=== PATIENT | female | born 1990 | race Caucasian/White ===

== ENCOUNTER 2016-09-29 23:21 | Emergency (ER) | payer OTHER ==
[~2016-09-29] VITALS: Ht 165.1 cm; Wt 68.3 kg
[~2016-09-29 23:21] MED LIST: ATARAX,VISTARIL50 MG PO; BACTRIM,SEPT1 TABLET PO; BACTROBAN OINTM22 GM TP; CEFDINIR300 MG PO; CEPHALEXIN500 M1 PO; CHILDRENS160 MG/5 M PO; CHROMAGEN,1 CAPSULE PO; FLEXERIL10 MG PO; KEFLEX250 MG/5 M PO; KEFLEX500 MG PO; LEVAQUIN750 MG PO; MOTRIN600 MG PO; MOTRIN800 MG PO; Motrin PO; NAPROSYN125 MG/5 M PO; NAPROSYN500 MG PO; NOHOMEMEDS; PEPCID20 MG PO; PRENATA CHEWAB1 EACH PO; PYRIDIUM100 MG PO; PYRIDIUM200 MG PO; ROBITUSSIN100 MG/5 M PO; VALIUM2 MG PO; ZOFRAN ODT4 MG PO; ZOFRAN ODT8 MG PO
[2016-09-29 23:53] LABS: HEMATOCRIT 34.8 % (36.0-46.0); MCH 24.2 PG (29.0-34.0); MCHC 32.5 G/DL (30.0-36.0); MCV 74.5 FL (83-99); MEAN PLAT.VOLUME 10.8 uM^3 (9.5-12.4); PLATELET COUNT 267 K/uL (156-360); RBC DIS.WIDTH-CV 16.4 % (11.8-14.6); RBC DIS.WIDTH-SD 43.2 % (39-53); RED BLOOD COUNT 4.67 M/uL (3.80-5.20); WHITE BLOOD COUNT 8.4 K/uL (4.1-10.2)
[2016-09-30 00:04] LABS: CHLORIDE 108 mEq/L (99-109); POTASSIUM 3.9 mEq/L (3.7-5.4); SODIUM 139 mEq/L (136-147)
[2016-09-30 00:06] LABS: GLUCOSE 91 mg/dL (70-99)
[2016-09-30 00:07] LABS: ANION GAP 11 MEQ/L (2-14)
[2016-09-30 00:08] LABS: ADD MIUA? YES; BILIRUBIN NEGATIVE; BLOOD NEGATIVE; COLOR YELLOW ((YELLOW)); GLUCOSE (STRIP) NEGATIVE; KETONES NEGATIVE; LEUKOCYTES MODERATE; NITRITE NEGATIVE; PH, URINE 7.5 (5-8); PROTEIN (STRIP) TRACE; SPECIFIC GRAVITY 1.016 (1.000-1.030)
[2016-09-30 00:08] LABS: TOTAL BILIRUBIN 0.3 mg/dL (0.0-1.0)
[2016-09-30 00:10] LABS: ALKALINE PHOSPHATASE 43 IU/L (3-129); GFR ESTIMATE (CALCULATED) > 59 mL/min/
[2016-09-30 00:11] LABS: UREA NITROGEN (BUN) 12 mg/dL (9-23)
[2016-09-30 00:18] LABS: QUANTITATIVE HCG 7002.2 MIU/ML
[2016-09-30 00:25] LABS: EPITHELIAL CELLS 1+; MUCUS NONE SEEN; RED BLOOD CELLS NONE SEEN /HPF (0-5); WHITE BLOOD CELLS 0-5 /HPF (0-5)
[2016-09-30 00:26] LABS: BACTERIA 1+; CASTS NONE SEEN /LPF; CRYSTALS NONE SEEN; UCUL ADDED? NO
[2016-09-30 01:21] VITALS: BP 132/88
== END 2016-09-30 01:22 | disposition home or self-care (01) ==
LOC: EME 23:21
DX: O99.89 Other specified diseases and conditions complicating pregnancy, childbirth and the puerperium (principal); R10.2 Pelvic and perineal pain; R11.0 Nausea; Z3A.01 Less than 8 weeks gestation of pregnancy
CPT/HCPCS: 76801; 80053; 81003; 84702; 85027; 99281; 99283

== ENCOUNTER 2016-10-15 14:34 | Emergency (ER) | payer OTHER ==
[~2016-10-15] VITALS: Ht 165.1 cm; Wt 65.7 kg
[2016-10-15 15:24] LABS: HEMATOCRIT 35.2 % (36.0-46.0); MCH 24.4 PG (29.0-34.0); MCHC 33.2 G/DL (30.0-36.0); MCV 73.3 FL (83-99); MEAN PLAT.VOLUME 10.9 uM^3 (9.5-12.4); PLATELET COUNT 289 K/uL (156-360); RBC DIS.WIDTH-SD 41.5 % (39-53); WHITE BLOOD COUNT 10.4 K/uL (4.1-10.2)
[2016-10-15 15:37] LABS: CHLORIDE 106 mEq/L (99-109); POTASSIUM 3.8 mEq/L (3.7-5.4); SODIUM 138 mEq/L (136-147)
[2016-10-15 15:39] LABS: GLUCOSE 81 mg/dL (70-99)
[2016-10-15 15:40] LABS: ANION GAP 13 MEQ/L (2-14)
[2016-10-15 15:41] LABS: TOTAL BILIRUBIN 0.5 mg/dL (0.0-1.0)
[2016-10-15 15:42] LABS: ALKALINE PHOSPHATASE 66 IU/L (3-129)
[2016-10-15 15:43] LABS: GFR ESTIMATE (CALCULATED) > 59 mL/min/
[2016-10-15 15:44] LABS: UREA NITROGEN (BUN) 15 mg/dL (9-23)
[2016-10-15 16:10] LABS: QUANTITATIVE HCG 88507.5 MIU/ML
[2016-10-15 18:45] LABS: ADD MIUA? YES; BILIRUBIN NEGATIVE; BLOOD NEGATIVE; COLOR YELLOW ((YELLOW)); GLUCOSE (STRIP) NEGATIVE; KETONES 80; LEUKOCYTES TRACE; NITRITE NEGATIVE; PROTEIN (STRIP) 30; SPECIFIC GRAVITY 1.032 (1.000-1.030); UROBILINOGEN 0.2 MG/DL (0.2-1.0)
[2016-10-15 18:59] LABS: BACTERIA RARE /HPF; EPITHELIAL CELLS 1+ /HPF; MUCUS 4+ /LPF; RED BLOOD CELLS 0-5 /HPF (0-5); UCUL ADDED? NO; WHITE BLOOD CELLS NONE SEEN /HPF (0-5)
[2016-10-15 19:16] LABS: INFLUENZA A VIRAL ANTIGEN NEGATIVE; INFLUENZA B VIRAL ANTIGEN NEGATIVE
[2016-10-15] MEDS ORDERED: ZOFRAN ODT4 MG PO (20:10)
[2016-10-15] MEDS ORDERED: PHENERGAN25 MG PR (20:10)
[2016-10-15 21:39] VITALS: BP 98/59
== END 2016-10-15 21:42 | disposition home or self-care (01) ==
LOC: EME 14:34
PROVIDERS: Nurse Practitioner Family
DX: O21.1 Hyperemesis gravidarum with metabolic disturbance (principal); Z3A.01 Less than 8 weeks gestation of pregnancy; Z86.32 Personal history of gestational diabetes
CPT/HCPCS: 80053; 81003; 84702; 85027; 87502; 99281; 99285; J2405; J7030

== ENCOUNTER 2016-12-03 17:38 | Emergency (ER) | payer OTHER ==
[~2016-12-03] VITALS: Ht 165.1 cm; Wt 66.1 kg
[~2016-12-03 17:38] MED LIST changes: +PHENERGAN25 MG PR
[2016-12-03 19:05] VITALS: BP 109/81
== END 2016-12-03 20:24 | disposition left against medical advice (07) ==
LOC: EME 17:38
DX: O99.712 Diseases of the skin and subcutaneous tissue complicating pregnancy, second trimester (principal); L50.9 Urticaria, unspecified; Z3A.25 25 weeks gestation of pregnancy
CPT/HCPCS: 87651 90; 99281; 99284; J7512

== ENCOUNTER 2016-12-26 21:49 | Outpatient (CLI) | payer OTHER ==
[2016-12-26 22:16] VITALS: BP 121/75
[2016-12-26 23:54] LABS: ADD MIUA? YES; BILIRUBIN NEGATIVE; BLOOD NEGATIVE; COLOR YELLOW ((YELLOW)); GLUCOSE (STRIP) NEGATIVE; KETONES 5; LEUKOCYTES TRACE; NITRITE NEGATIVE; PROTEIN (STRIP) 30; SPECIFIC GRAVITY 1.024 (1.000-1.030)
[2016-12-26 23:58] LABS: BACTERIA RARE /HPF; EPITHELIAL CELLS 1+ /HPF; MUCUS 2+ /LPF; RED BLOOD CELLS 0-5 /HPF (0-5)
[2016-12-27 03:51] LABS: CANDIDA DNA PROBE NEGATIVE; GARDNERELLA DNA PROBE NEGATIVE; INTERNAL CONTROL VALID? YES
[2016-12-27 05:13] LABS: AMPHETAMINES QUANT VALUE 0 NG/ML; BARBITUATES QUANT VALUE 0 NG/ML; BENZODIAZEPINES QUANT VALUE 0 NG/ML; BENZODIAZEPINES, URINE SCREEN Negative (200 ng/mL); MARIJUANA QUANT VALUE 0 NG/ML; OPIATES QUANTITATIVE VALUE 0 NG/ML; PHENCYCLIDINE QUANT VALUE 0 NG/ML
[2016-12-28 11:37] LABS: CHLAMYDIA TRACHOMATIS NEGATIVE; NEISSERIA GONORRHOEAE NEGATIVE
== END 2016-12-27 01:00 | disposition home or self-care (01) ==
LOC: LDRP-OP → 2WEST 21:50 → LDRP-OP 06-25 11:32
PROVIDERS: Advanced Practice Midwife; Obstetrics & Gynecology
DX: O26.892 Other specified pregnancy related conditions, second trimester (principal); Z3A.18 18 weeks gestation of pregnancy; R10.9 Unspecified abdominal pain; O21.9 Vomiting of pregnancy, unspecified
CPT/HCPCS: 59025; 80306 90; 81003; 87086; 87480; 87491; 87510; 87591; 87660; G0378

== ENCOUNTER 2017-01-30 17:04 | Emergency (ER) | payer OTHER ==
[~2017-01-30] VITALS: Ht 165.1 cm; Wt 61.5 kg
[2017-01-30] MEDS ORDERED: PRENATAL TABLE1 EAC3 PO (17:09)
[2017-01-30 18:09] VITALS: BP 110/75
== END 2017-01-30 18:10 | disposition home or self-care (01) ==
LOC: EME 17:04
DX: L50.0 Allergic urticaria (principal)
CPT/HCPCS: 99281; 99283

== ENCOUNTER 2017-04-12 22:41 | Outpatient (CLI) | payer OTHER ==
[~2017-04-12 22:41] MED LIST changes: +PRENATAL TABLE1 EAC3 PO
[2017-04-12 22:56] VITALS: BP 115/71
[2017-04-13 00:22] LABS: EOSINOPHIL (%) 0.8 % (0-5); EOSINOPHIL COUNT 0.1 K/uL (0-0.3); HEMATOCRIT 26.9 % (36.0-46.0); IMMATURE GRANULOCYTE (%) 0.7 % (0.0-0.7); IMMATURE GRANULOCYTE COUNT 0.1 K/uL; LYMPHOCYTE COUNT 2.6 K/uL (1.0-2.8); MCHC 30.1 G/DL (30.0-36.0); MCV 69.7 FL (83-99); MEAN PLAT.VOLUME 10.6 uM^3 (9.5-12.4); MONOCYTE (%) 5.9 % (3-12); MONOCYTE COUNT 0.7 K/uL (0-0.8); PLATELET COUNT 220 K/uL (156-360); RBC DIS.WIDTH-CV 16.4 % (11.8-14.6); RBC DIS.WIDTH-SD 41.1 % (39-53); RED BLOOD COUNT 3.86 M/uL (3.80-5.20); WHITE BLOOD COUNT 11.4 K/uL (4.1-10.2)
[2017-04-13 00:33] LABS: AMPHETAMINE NEGATIVE (500 ng/mL); BARBITURATES NEGATIVE (200 ng/mL); BENZODIAZEPINES NEGATIVE (150 ng/mL); COCAINE NEGATIVE (150 ng/mL); METHADONE NEGATIVE (200 ng/mL); METHAMPHETAMINE NEGATIVE (500 ng/mL); OPIATES (MORPHINE) NEGATIVE (100 ng/mL); OXYCODONE NEGATIVE (100 ng/mL); PHENCYCLIDINE NEGATIVE (25 ng/mL); PROPOXYPHENE NEGATIVE (300 ng/mL); THC CANNABINOIDS NEGATIVE (50 ng/mL); TRICYCLIC ANTIDEPRESSANTS NEGATIVE (300 ng/mL)
[2017-04-13 00:34] LABS: ADD MIUA? YES; BILIRUBIN NEGATIVE; BLOOD NEGATIVE; COLOR YELLOW ((YELLOW)); GLUCOSE (STRIP) NEGATIVE; INTERNAL CONTROLS VALID? YES; KETONES 5; LEUKOCYTES SMALL; NITRITE NEGATIVE; PROTEIN (STRIP) NEGATIVE
[2017-04-13 00:39] LABS: BACTERIA 1+ /HPF; EPITHELIAL CELLS RARE /HPF; MUCUS 1+ /LPF; RED BLOOD CELLS 0-5 /HPF (0-5)
[2017-04-13] MEDS ORDERED: COLACE100 MG PO (01:16)
[2017-04-13] MEDS ORDERED: FERROUS SULFAT325 MG PO (01:16)
[2017-04-13 02:25] LABS: CANDIDA DNA PROBE NEGATIVE; GARDNERELLA DNA PROBE POSITIVE; INTERNAL CONTROL VALID? YES
[2017-04-13 08:05] LABS: Estimated Average Glucose 117 mg/dL (70-123); HEMOGLOBIN A1c (GLYCOHEMOGLOB) 5.7 % HGB (Below 5.7)
[2017-04-14 11:44] LABS: TREPONEMA ANTIBODY NEGATIVE (NEGATIVE)
== END 2017-04-13 01:30 | disposition home or self-care (01) ==
LOC: LDRP-OP 22:41 → 2WEST 22:42 → LDRP-OP 06-25 01:34
PROVIDERS: Advanced Practice Midwife
DX: O26.893 Other specified pregnancy related conditions, third trimester (principal); O99.013 Anemia complicating pregnancy, third trimester; Z3A.33 33 weeks gestation of pregnancy; O09.33 Supervision of pregnancy with insufficient antenatal care, third trimester
CPT/HCPCS: 59025; 81003; 83036; 85025; 86780; 87086; 87480; 87510; 87660; G0378

== ENCOUNTER 2017-04-17 09:41 | Outpatient (CLI) | payer OTHER ==
[~2017-04-17 09:41] MED LIST changes: +COLACE100 MG PO; +FERROUS SULFAT325 MG PO
[2017-04-17 09:55] VITALS: BP 119/77
[2017-04-17 11:22] VITALS: BP 110/74
[2017-04-17 12:29] VITALS: BP 110/81
[2017-04-17] MEDS ORDERED: METRONIDAZOLE500 MG PO (13:06)
== END 2017-04-17 13:30 | disposition home or self-care (01) ==
LOC: LDRP-OP 09:41 → 2WEST 09:43 → LDRP-OP 06-25 02:14
DX: O47.03 False labor before 37 completed weeks of gestation, third trimester (principal); Z3A.34 34 weeks gestation of pregnancy
CPT/HCPCS: 59025; G0378

== ENCOUNTER 2017-04-26 17:30 | Outpatient (CLI) | payer OTHER ==
[~2017-04-26 17:30] MED LIST changes: +METRONIDAZOLE500 MG PO
[2017-04-26 17:46] VITALS: BP 129/77
[2017-04-26 18:36] VITALS: BP 100/62
== END 2017-04-26 19:55 | disposition home or self-care (01) ==
LOC: LDRP-OP 17:30 → 2WEST 17:31 → LDRP-OP 06-25 14:24
DX: O47.03 False labor before 37 completed weeks of gestation, third trimester (principal); O09.213 Supervision of pregnancy with history of pre-term labor, third trimester; Z3A.35 35 weeks gestation of pregnancy
CPT/HCPCS: 59025; G0378

== ENCOUNTER 2017-05-06 04:35 | Inpatient (IN) | payer OTHER ==
[~2017-05-06] VITALS: Ht 165.1 cm; Wt 70.5 kg
[2017-05-06] VITALS (20 sets, daily range): BP systolic 94–143; BP diastolic 57–79
[2017-05-06] MEDS ORDERED: BUSPAR5 MG PO (05:15)
[2017-05-06 06:28] LABS: EOSINOPHIL (%) 0.8 % (0-5); EOSINOPHIL COUNT 0.1 K/uL (0-0.3); HEMATOCRIT 24.4 % (36.0-46.0); IMMATURE GRANULOCYTE (%) 0.6 % (0.0-0.7); IMMATURE GRANULOCYTE COUNT 0.1 K/uL; INSTRUMENT ABS NEUTROPHIL CT 8.6 K/uL; LYMPHOCYTE COUNT 2.6 K/uL (1.0-2.8); MCH 20.6 PG (29.0-34.0); MCHC 30.3 G/DL (30.0-36.0); MCV 67.8 FL (83-99); MEAN PLAT.VOLUME 10.1 uM^3 (9.5-12.4); MONOCYTE (%) 6.2 % (3-12); MONOCYTE COUNT 0.8 K/uL (0-0.8); NEUTROPHIL (%) 70.7 % (45-76); NEUTROPHIL COUNT 8.6 K/uL (1.8-6.4); NRBC (%) 0.2 /100 WBC (0-0); PLATELET COUNT 233 K/uL (156-360); RBC DIS.WIDTH-CV 17.7 % (11.8-14.6); RBC DIS.WIDTH-SD 42.5 % (39-53); WHITE BLOOD COUNT 12.2 K/uL (4.1-10.2)
[2017-05-07 07:08] LABS: EOSINOPHIL (%) 1.6 % (0-5); EOSINOPHIL COUNT 0.2 K/uL (0-0.3); HEMATOCRIT 22.9 % (36.0-46.0); IMMATURE GRANULOCYTE (%) 0.6 % (0.0-0.7); IMMATURE GRANULOCYTE COUNT 0.1 K/uL; INSTRUMENT ABS NEUTROPHIL CT 6.7 K/uL; LYMPHOCYTE COUNT 3.4 K/uL (1.0-2.8); MCH 19.6 PG (29.0-34.0); MCHC 28.8 G/DL (30.0-36.0); MCV 68.2 FL (83-99); MEAN PLAT.VOLUME 10.6 uM^3 (9.5-12.4); MONOCYTE (%) 6.1 % (3-12); MONOCYTE COUNT 0.7 K/uL (0-0.8); NEUTROPHIL (%) 61.1 % (45-76); NEUTROPHIL COUNT 6.7 K/uL (1.8-6.4); NRBC (%) 0.2 /100 WBC (0-0); PLATELET COUNT 202 K/uL (156-360); RBC DIS.WIDTH-CV 17.7 % (11.8-14.6); RBC DIS.WIDTH-SD 43.6 % (39-53); RED BLOOD COUNT 3.36 M/uL (3.80-5.20)
[2017-05-07 07:18] VITALS: BP 113/68
[2017-05-07 15:02] VITALS: BP 104/65
[2017-05-07 15:46] VITALS: BP 102/69
[2017-05-07 16:51] VITALS: BP 104/62
[2017-05-07 18:42] VITALS: BP 133/74
[2017-05-07 19:22] LABS: EOSINOPHIL COUNT 0.2 K/uL (0-0.3); HEMATOCRIT 21.2 % (36.0-46.0); IMMATURE GRANULOCYTE (%) 0.6 % (0.0-0.7); IMMATURE GRANULOCYTE COUNT 0.1 K/uL; INSTRUMENT ABS NEUTROPHIL CT 7.2 K/uL; LYMPHOCYTE COUNT 3.1 K/uL (1.0-2.8); MCHC 30.7 G/DL (30.0-36.0); MCV 68.4 FL (83-99); MEAN PLAT.VOLUME 10.2 uM^3 (9.5-12.4); MONOCYTE (%) 4.9 % (3-12); MONOCYTE COUNT 0.5 K/uL (0-0.8); NEUTROPHIL (%) 64.6 % (45-76); NEUTROPHIL COUNT 7.2 K/uL (1.8-6.4); PLATELET COUNT 226 K/uL (156-360); RBC DIS.WIDTH-SD 43.6 % (39-53); WHITE BLOOD COUNT 11.1 K/uL (4.1-10.2)
[2017-05-07 23:00] VITALS: BP 113/68
[2017-05-08] VITALS (14 sets, daily range): BP systolic 84–123; BP diastolic 51–72
[2017-05-08] MEDS ORDERED: FERROCITE324 MG PO (10:19)
[2017-05-09 06:14] LABS: HEMATOCRIT 26.2 % (36.0-46.0); MCH 21.4 PG (29.0-34.0); MCHC 29.8 G/DL (30.0-36.0); MCV 71.8 FL (83-99); MEAN PLAT.VOLUME 9.7 uM^3 (9.5-12.4); NRBC (%) 0.4 /100 WBC (0-0); PLATELET COUNT 175 K/uL (156-360); RBC DIS.WIDTH-CV 19.8 % (11.8-14.6); RBC DIS.WIDTH-SD 50.4 % (39-53); RED BLOOD COUNT 3.65 M/uL (3.80-5.20); WHITE BLOOD COUNT 10.8 K/uL (4.1-10.2)
[2017-05-09 07:31] VITALS: BP 107/77
[2017-05-09 10:06] LABS: ANION GAP 10 MEQ/L (2-14); CHLORIDE 108 MEQ/L (99-109); POTASSIUM 3.9 MEQ/L (3.7-5.4); SAMPLE HEMOLYSIS CHECK 0; SAMPLE ICTERIC CHECK 0; SAMPLE LIPEMIA CHECK 0; SODIUM 141 MEQ/L (136-147)
[2017-05-09 10:11] LABS: GFR ESTIMATE (CALCULATED) > 59 mL/min/; GLUCOSE 83 mg/dL (70-99); UREA NITROGEN (BUN) 5 mg/dL (9-23)
[2017-05-09 11:59] VITALS: BP 110/72
[2017-05-09] MEDS ORDERED: ESGIC CAPSULE1 EACH PO ×2 (12:07→12:21)
[2017-05-09] MEDS ORDERED: CHILDREN'S100 MG/51 PO (12:11)
[2017-05-09] MEDS ORDERED: IBUPROFEN100 MG/5 M PO (12:25)
[2017-05-09] MEDS ORDERED: PUMP IN STYLE1 EACH MC (12:27)
== END 2017-05-09 15:45 | disposition home or self-care (01) | DRG 775 ==
LOC: LDRP-OP 04:35 → 2WEST 04:36 → LDRP-OP 06-25 20:12
PROVIDERS: Advanced Practice Midwife; Obstetrics & Gynecology
PROC: 10E0XZZ Delivery of Products of Conception, External Approach (ICD-10-PCS; principal; 2017-05-06)
PROC: 00HU33Z Insertion of Infusion Device into Spinal Canal, Percutaneous Approach (ICD-10-PCS; 2017-05-06)
PROC: 3E0S3CZ (ICD-10-PCS; 2017-05-06)
PROC: 3E0R3GC Introduction of Other Therapeutic Substance into Spinal Canal, Percutaneous Approach (ICD-10-PCS; 2017-05-06)
PROC: 30233N1 Transfusion of Nonautologous Red Blood Cells into Peripheral Vein, Percutaneous Approach (ICD-10-PCS; 2017-05-08)
DX: O99.02 Anemia complicating childbirth (principal); D62 Acute posthemorrhagic anemia; O75.89 Other specified complications of labor and delivery; G97.1 Other reaction to spinal and lumbar puncture; O69.2XX0 Labor and delivery complicated by other cord entanglement, with compression, not applicable or unspecified; O99.344 Other mental disorders complicating childbirth; F41.9 Anxiety disorder, unspecified; F32.9 Major depressive disorder, single episode, unspecified; Z3A.37 37 weeks gestation of pregnancy; Z37.0 Single live birth; Z59.0 Homelessness
CPT/HCPCS: 80048; 85025; 85025 91; 85027; 86850; 86900; 86901; 86920; C1755; J7120; P9016

== ENCOUNTER 2017-05-10 12:30 | Emergency (ER) | payer OTHER ==
[~2017-05-10] VITALS: Ht 165.1 cm; Wt 68.7 kg
[~2017-05-10 12:30] MED LIST changes: +BUSPAR5 MG PO; +CHILDREN'S100 MG/51 PO; +ESGIC CAPSULE1 EACH PO; +FERROCITE324 MG PO; +IBUPROFEN100 MG/5 M PO; +PUMP IN STYLE1 EACH MC
[2017-05-10 13:30] LABS: EOSINOPHIL COUNT 0.3 K/uL (0-0.3); HEMATOCRIT 32.3 % (36.0-46.0); IMMATURE GRANULOCYTE COUNT 0.1 K/uL; INSTRUMENT ABS NEUTROPHIL CT 6.8 K/uL; LYMPHOCYTE COUNT 2.2 K/uL (1.0-2.8); MCH 21.7 PG (29.0-34.0); MCV 72.4 FL (83-99); MEAN PLAT.VOLUME 9.8 uM^3 (9.5-12.4); MONOCYTE (%) 4.3 % (3-12); MONOCYTE COUNT 0.4 K/uL (0-0.8); NEUTROPHIL (%) 68.7 % (45-76); NEUTROPHIL COUNT 6.8 K/uL (1.8-6.4); RBC DIS.WIDTH-CV 21.5 % (11.8-14.6); RBC DIS.WIDTH-SD 51.1 % (39-53); WHITE BLOOD COUNT 9.8 K/uL (4.1-10.2)
[2017-05-10 13:31] LABS: PLATELET COUNT 233 K/uL (156-360); RED BLOOD COUNT 4.46 M/uL (3.80-5.20)
[2017-05-10 17:55] VITALS: BP 100/63
== END 2017-05-10 18:31 | disposition home or self-care (01) ==
LOC: EME 12:30
PROVIDERS: Emergency Medicine
PROC: 3E0S3GC Introduction of Other Therapeutic Substance into Epidural Space, Percutaneous Approach (ICD-10-PCS; principal; 2017-05-10)
DX: O89.4 Spinal and epidural anesthesia-induced headache during the puerperium (principal); O99.03 Anemia complicating the puerperium; D50.9 Iron deficiency anemia, unspecified; O99.345 Other mental disorders complicating the puerperium; F41.9 Anxiety disorder, unspecified
CPT/HCPCS: 85025; 99281; 99284; J1200; J1885; J2765; J3010; J7040

== ENCOUNTER 2017-05-12 05:50 | Emergency (ER) | payer OTHER ==
[~2017-05-12] VITALS: Ht 167.6 cm; Wt 70.5 kg
[2017-05-12 06:40] LABS: HEMATOCRIT 36.2 % (36.0-46.0); MCH 21.9 PG (29.0-34.0); MCV 75.6 FL (83-99); MEAN PLAT.VOLUME 9.6 uM^3 (9.5-12.4); PLATELET COUNT 244 K/uL (156-360); RBC DIS.WIDTH-SD 56.9 % (39-53); RED BLOOD COUNT 4.79 M/uL (3.80-5.20)
[2017-05-12 07:04] LABS: CK-MB < 0.4 ng/mL (0.0-4.9)
[2017-05-12 07:20] LABS: CHLORIDE 107 mEq/L (99-109); SODIUM 141 mEq/L (136-147)
[2017-05-12 07:21] LABS: MAGNESIUM 1.9 mg/dL (1.3-2.7)
[2017-05-12 07:24] LABS: ANION GAP 26 MEQ/L (2-14)
[2017-05-12 07:25] LABS: TOTAL BILIRUBIN 0.3 mg/dL (0.0-1.0)
[2017-05-12 07:26] LABS: SERUM ETHYL ALCOHOL < 10 mg/dL
[2017-05-12 07:27] LABS: ALKALINE PHOSPHATASE 157 IU/L (3-129); GFR ESTIMATE (CALCULATED) > 59 mL/min/
[2017-05-12 07:29] LABS: UREA NITROGEN (BUN) 10 mg/dL (9-23)
[2017-05-12 07:30] LABS: GLUCOSE 161 mg/dL (70-99); SALICYLATE < 5.0 MG/DL (15-30)
[2017-05-12 07:32] LABS: CREATINE KINASE 82 IU/L (1-294); TOTAL CK 82 IU/L (1-294)
[2017-05-12 07:35] LABS: ADD MIUA? YES; BILIRUBIN NEGATIVE; BLOOD MODERATE; COLOR YELLOW ((YELLOW)); GLUCOSE (STRIP) NEGATIVE; KETONES 5; LEUKOCYTES NEGATIVE; NITRITE NEGATIVE; PROTEIN (STRIP) 100; SPECIFIC GRAVITY 1.016 (1.000-1.030); UROBILINOGEN 0.2 MG/DL (0.2-1.0)
[2017-05-12 07:36] LABS: LIPASE 14 U/L (1.0-51.0)
[2017-05-12 07:44] LABS: BASE EXCESS -12.9 mEq/L (-3 to +3); BICARBONATE 14.5 mEq/L (22-26); CARBOXY HGB 1.8 % (0-5); COMMENTS - BLOOD GASES +C; DEVICE PB840; FI02 100 %; MODE AC; PCO2 38 mm Hg (35-45); PO2 357 mm Hg (80-100); SITE RR +A
[2017-05-12 07:44] LABS: AMPHETAMINE NEGATIVE (500 ng/mL); BARBITURATES PRESUMPTIVE POSITIVE (200 ng/mL); BENZODIAZEPINES NEGATIVE (150 ng/mL); COCAINE NEGATIVE (150 ng/mL); METHADONE NEGATIVE (200 ng/mL); METHAMPHETAMINE NEGATIVE (500 ng/mL); OPIATES (MORPHINE) NEGATIVE (100 ng/mL); OXYCODONE NEGATIVE (100 ng/mL); PHENCYCLIDINE NEGATIVE (25 ng/mL); THC CANNABINOIDS NEGATIVE (50 ng/mL); TRICYCLIC ANTIDEPRESSANTS NEGATIVE (300 ng/mL)
[2017-05-12 07:45] LABS: MECHANICAL RATE 12 resp/min; PEEP 5 CM/H20; TIDAL VOLUME 400 ML; TOTAL RESP RATE 12 resp/min; pH 7.19 (7.35-7.45)
[2017-05-12 07:45] LABS: ADD MEDTOX COMMENT Y; INTERNAL CONTROLS VALID? YES; PROPOXYPHENE NEGATIVE (300 ng/mL)
[2017-05-12 07:48] LABS: BACTERIA RARE /HPF; EPITHELIAL CELLS RARE /HPF; MUCUS TRACE /LPF; RED BLOOD CELLS 0-5 /HPF (0-5); UCUL ADDED? NO; WHITE BLOOD CELLS 0-5 /HPF (0-5)
[2017-05-12 09:40] LABS: BASE EXCESS -8.6 mEq/L (-3 to +3); BICARBONATE 16.5 mEq/L (22-26); COMMENTS - BLOOD GASES +C; METHEMOGLOBIN 1.2 % (0-1.5); PCO2 32 mm Hg (35-45); PO2 160 mm Hg (80-100); SITE RB; pH 7.32 (7.35-7.45)
[2017-05-12 09:41] LABS: DEVICE PB840; FI02 50 %; MECHANICAL RATE 16 resp/min; MODE AC; PEEP 5 CM/H20; TIDAL VOLUME 400 ML; TOTAL RESP RATE 27 resp/min
[2017-05-12 12:55] VITALS: BP 102/68
== END 2017-05-12 12:55 | disposition short-term general hospital (02) ==
LOC: EME → EDBD 05:50 → EME 12:55
PROVIDERS: Emergency Medicine; Obstetrics & Gynecology
PROC: 0BH17EZ Insertion of Endotracheal Airway into Trachea, Via Natural or Artificial Opening (ICD-10-PCS; principal; 2017-05-12)
DX: O15.2 Eclampsia complicating the puerperium (principal); O99.43 Diseases of the circulatory system complicating the puerperium; I60.9 Nontraumatic subarachnoid hemorrhage, unspecified; O90.89 Other complications of the puerperium, not elsewhere classified; E87.2 Acidosis
CPT/HCPCS: 36600; 70450; 70496; 71010; 80053; 81003; 82550; 82553; 82803; 83605; 83690; 83735; 84100; 84702; 84999; 85027; 87040; 87070; 87205; 94002; 99281; 99285; G0480; J0696; J1953; J2060; J2250; J2704; J3475; J7030; J7050

== ENCOUNTER 2017-05-16 18:52 | Inpatient (IN) | payer OTHER ==
[~2017-05-16] VITALS: Ht 165.1 cm; Wt 65.9 kg
[2017-05-16 19:43] LABS: HEMATOCRIT 32.1 % (36.0-46.0); MCH 22.4 PG (29.0-34.0); MCHC 30.5 G/DL (30.0-36.0); MCV 73.3 FL (83-99); PLATELET COUNT 227 K/uL (156-360); RBC DIS.WIDTH-CV 22.8 % (11.8-14.6); RBC DIS.WIDTH-SD 59.2 % (39-53); RED BLOOD COUNT 4.38 M/uL (3.80-5.20); WHITE BLOOD COUNT 7.2 K/uL (4.1-10.2)
[2017-05-16 19:45] LABS: CHLORIDE 108 mEq/L (99-109); POTASSIUM 3.7 mEq/L (3.7-5.4); SODIUM 141 mEq/L (136-147)
[2017-05-16 19:46] LABS: GLUCOSE 91 mg/dL (70-99)
[2017-05-16 19:48] LABS: ANION GAP 14 MEQ/L (2-14)
[2017-05-16 19:50] LABS: GFR ESTIMATE (CALCULATED) > 59 mL/min/
[2017-05-16 19:51] LABS: UREA NITROGEN (BUN) 9 mg/dL (9-23)
[2017-05-16 20:46] LABS: INTER. NORMALIZED RATIO 1.6; PROTHROMBIN TIME 17.9 SEC (10.2-12.9)
[2017-05-16 20:49] LABS: PTT 30.4 SEC (25-37)
[2017-05-16] MEDS ORDERED: COUMADIN5 MG PO (23:25)
[2017-05-16] MEDS ORDERED: PAIN RELIE160 MG/52 PO (23:25)
[2017-05-16] MEDS ORDERED: LOVENOX80 MG/0.8 SC (23:26)
[2017-05-16] MEDS ORDERED: KEPPRA LIQUID (23:26)
[2017-05-17] VITALS (8 sets, daily range): BP systolic 89–117; BP diastolic 51–84
[2017-05-17 07:07] LABS: HDL CHOLESTEROL 40 MG/DL (Desirable>=50); LDL CHOLESTEROL 150 mg/dL (Desirable<100); NON-HDL CHOLESTEROL 200 mg/dL (Desirable<160); TOTAL CHOLESTEROL 240 mg/dL (Desirable<200); TRIGLYCERIDES 251 MG/DL (Normal: <150)
[2017-05-17 08:28] LABS: Estimated Average Glucose 105 mg/dL (70-123); HEMOGLOBIN A1c (GLYCOHEMOGLOB) 5.3 % HGB (Below 5.7)
[2017-05-17 10:05] LABS: HEMATOCRIT 32.5 % (36.0-46.0); MCH 23.1 PG (29.0-34.0); MCHC 30.8 G/DL (30.0-36.0); MCV 75.1 FL (83-99); MEAN PLAT.VOLUME 10.1 uM^3 (9.5-12.4); PLATELET COUNT 215 K/uL (156-360); RBC DIS.WIDTH-CV 23.4 % (11.8-14.6); RBC DIS.WIDTH-SD 61.4 % (39-53); RED BLOOD COUNT 4.33 M/uL (3.80-5.20); WHITE BLOOD COUNT 6.6 K/uL (4.1-10.2)
[2017-05-17 10:29] LABS: ANION GAP 12 MEQ/L (2-14); CHLORIDE 105 MEQ/L (99-109); GFR ESTIMATE (CALCULATED) > 59 mL/min/; GLUCOSE 107 mg/dL (70-99); POTASSIUM 3.9 MEQ/L (3.7-5.4); SAMPLE HEMOLYSIS CHECK 0; SAMPLE ICTERIC CHECK 0; SAMPLE LIPEMIA CHECK 0; SODIUM 139 MEQ/L (136-147); UREA NITROGEN (BUN) 12 mg/dL (9-23)
[2017-05-17] MEDS ORDERED: KEPPRA100 MG/1 M PO (19:11)
[2017-05-17 19:45] LABS: INTER. NORMALIZED RATIO 1.9; PROTHROMBIN TIME 21.7 SEC (10.2-12.9)
[2017-05-18 04:39] VITALS: BP 110/60
[2017-05-18 06:56] LABS: INTER. NORMALIZED RATIO 1.7
[2017-05-18 07:23] VITALS: BP 110/71
[2017-05-18 07:41] LABS: HEMATOCRIT 36.8 % (36.0-46.0); MCH 22.8 PG (29.0-34.0); MCHC 30.7 G/DL (30.0-36.0); MCV 74.3 FL (83-99); MEAN PLAT.VOLUME 10.3 uM^3 (9.5-12.4); PLATELET COUNT 262 K/uL (156-360); RBC DIS.WIDTH-CV 23.7 % (11.8-14.6); RBC DIS.WIDTH-SD 62.1 % (39-53); RED BLOOD COUNT 4.95 M/uL (3.80-5.20); WHITE BLOOD COUNT 6.5 K/uL (4.1-10.2)
[2017-05-18 11:30] VITALS: BP 119/74
[2017-05-18 15:32] VITALS: BP 105/72
[2017-05-18 20:05] VITALS: BP 107/63
[2017-05-18 22:06] VITALS: BP 101/74
[2017-05-19 03:30] VITALS: BP 96/58
[2017-05-19 06:32] LABS: INTER. NORMALIZED RATIO 2.3; PROTHROMBIN TIME 25.7 SEC (10.2-12.9)
[2017-05-19 06:38] LABS: EOSINOPHIL (%) 3.1 % (0-5); EOSINOPHIL COUNT 0.2 K/uL (0-0.3); HEMATOCRIT 33.7 % (36.0-46.0); IMMATURE GRANULOCYTE (%) 0.4 % (0.0-0.7); LYMPHOCYTE COUNT 2.3 K/uL (1.0-2.8); MCH 21.9 PG (29.0-34.0); MCHC 29.7 G/DL (30.0-36.0); MCV 73.9 FL (83-99); MONOCYTE (%) 6.8 % (3-12); MONOCYTE COUNT 0.5 K/uL (0-0.8); NEUTROPHIL (%) 56.4 % (45-76); PLATELET COUNT 261 K/uL (156-360); RBC DIS.WIDTH-CV 23.2 % (11.8-14.6); RBC DIS.WIDTH-SD 60.9 % (39-53); RED BLOOD COUNT 4.56 M/uL (3.80-5.20); WHITE BLOOD COUNT 7.1 K/uL (4.1-10.2)
[2017-05-19 06:49] LABS: ANION GAP 9 MEQ/L (2-14); CHLORIDE 105 MEQ/L (99-109); GFR ESTIMATE (CALCULATED) > 59 mL/min/; GLUCOSE 78 mg/dL (70-99); POTASSIUM 4.3 MEQ/L (3.7-5.4); SAMPLE HEMOLYSIS CHECK 0; SAMPLE ICTERIC CHECK 0; SAMPLE LIPEMIA CHECK 0; SODIUM 139 MEQ/L (136-147); UREA NITROGEN (BUN) 18 mg/dL (9-23)
[2017-05-19 07:25] VITALS: BP 95/67
[2017-05-19 11:32] VITALS: BP 89/55
[2017-05-19] MEDS ORDERED: ENDOCET 5-3251 EACH PO (15:59)
[2017-05-19 16:00] VITALS: BP 99/63
[2017-05-19] MEDS ORDERED: LOVENOX60 MG/0.6 SC (16:02)
== END 2017-05-19 18:20 | disposition home or self-care (01) | DRG 776 ==
LOC: EME 18:52 → EDOF 23:30 → 5WEST 23:30 → ENRESERV 23:31 → 5WEST 05-17 00:51 → ENRESERV 05-17 16:46 → 5WEST 05-17 16:46 → ENRESERV 05-17 17:17 → 4EAST 05-17 18:06
PROVIDERS: Emergency Medicine; Hospitalist; Internal Medicine; Physician Assistant Medical
DX: O99.43 Diseases of the circulatory system complicating the puerperium (principal); I69.298 Other sequelae of other nontraumatic intracranial hemorrhage; O99.355 Diseases of the nervous system complicating the puerperium; G43.819 Other migraine, intractable, without status migrainosus; I69.292 Facial weakness following other nontraumatic intracranial hemorrhage; I69.222 Dysarthria following other nontraumatic intracranial hemorrhage; I69.220 Aphasia following other nontraumatic intracranial hemorrhage; I69.254 Hemiplegia and hemiparesis following other nontraumatic intracranial hemorrhage affecting left non-dominant side; R20.8 Other disturbances of skin sensation; R20.2 Paresthesia of skin; G40.89 Other seizures; D50.9 Iron deficiency anemia, unspecified; M54.2 Cervicalgia; F41.9 Anxiety disorder, unspecified; Z86.32 Personal history of gestational diabetes; Z86.718 Personal history of other venous thrombosis and embolism
CPT/HCPCS: 70450; 70496; 70551; 71020; 80048; 80061; 81003; 83036; 85025; 85027; 85610; 85730; 93306; 99281; 99285; G0378; J1650

== ENCOUNTER 2017-05-22 13:13 | Observation (INO) | payer OTHER ==
[~2017-05-22] VITALS: Ht 165.1 cm; Wt 63.7 kg
[~2017-05-22 13:13] MED LIST changes: +COUMADIN5 MG PO; +ENDOCET 5-3251 EACH PO; +KEPPRA LIQUID; +KEPPRA100 MG/1 M PO; +LOVENOX60 MG/0.6 SC; +LOVENOX80 MG/0.8 SC; +PAIN RELIE160 MG/52 PO
[2017-05-22 14:20] LABS: INTER. NORMALIZED RATIO 2.7
[2017-05-22 14:22] LABS: EOSINOPHIL (%) 0.8 % (0-5); EOSINOPHIL COUNT 0.1 K/uL (0-0.3); HEMATOCRIT 35.8 % (36.0-46.0); IMMATURE GRANULOCYTE (%) 0.5 % (0.0-0.7); INSTRUMENT ABS NEUTROPHIL CT 6.1 K/uL; LYMPHOCYTE COUNT 2.1 K/uL (1.0-2.8); MCH 22.4 PG (29.0-34.0); MCHC 30.7 G/DL (30.0-36.0); MCV 72.9 FL (83-99); MONOCYTE (%) 5.2 % (3-12); MONOCYTE COUNT 0.5 K/uL (0-0.8); NEUTROPHIL (%) 69.6 % (45-76); NEUTROPHIL COUNT 6.1 K/uL (1.8-6.4); PLATELET COUNT 405 K/uL (156-360); RBC DIS.WIDTH-CV 23.5 % (11.8-14.6); RBC DIS.WIDTH-SD 59.9 % (39-53); RED BLOOD COUNT 4.91 M/uL (3.80-5.20); WHITE BLOOD COUNT 8.8 K/uL (4.1-10.2)
[2017-05-22 14:27] LABS: CHLORIDE 111 mEq/L (99-109); SODIUM 140 mEq/L (136-147)
[2017-05-22 14:28] LABS: POTASSIUM 3.4 mEq/L (3.7-5.4)
[2017-05-22 14:29] LABS: GLUCOSE 88 mg/dL (70-99)
[2017-05-22 14:31] LABS: ANION GAP 14 MEQ/L (2-14); TOTAL BILIRUBIN 0.4 mg/dL (0.0-1.0)
[2017-05-22 14:33] LABS: ALKALINE PHOSPHATASE 110 IU/L (3-129); GFR ESTIMATE (CALCULATED) > 59 mL/min/
[2017-05-22 14:34] LABS: UREA NITROGEN (BUN) 16 mg/dL (9-23)
[2017-05-22 14:36] LABS: TROP-I INTERPRETATION NEGATIVE; TROPONIN-I < 0.01 ng/mL (0.0-0.30)
[2017-05-22 18:21] LABS: Estimated Average Glucose 100 mg/dL (70-123); HEMOGLOBIN A1c (GLYCOHEMOGLOB) 5.1 % HGB (Below 5.7)
[2017-05-22 18:29] LABS: HDL CHOLESTEROL 36 MG/DL (Desirable>=50); LDL CHOLESTEROL 151 mg/dL (Desirable<100); NON-HDL CHOLESTEROL 224 mg/dL (Desirable<160); TOTAL CHOLESTEROL 260 mg/dL (Desirable<200); TRIGLYCERIDES 367 MG/DL (Normal: <150)
[2017-05-22 20:11] VITALS: BP 109/75
[2017-05-23 00:01] VITALS: BP 102/66
[2017-05-23 04:27] VITALS: BP 104/59
[2017-05-23 06:21] LABS: INTER. NORMALIZED RATIO 2.9; PROTHROMBIN TIME 32.7 SEC (10.2-12.9)
[2017-05-23 06:22] LABS: HEMATOCRIT 32.5 % (36.0-46.0); MCH 22.1 PG (29.0-34.0); MCHC 29.2 G/DL (30.0-36.0); MCV 75.8 FL (83-99); MEAN PLAT.VOLUME 10.3 uM^3 (9.5-12.4); PLATELET COUNT 364 K/uL (156-360); RBC DIS.WIDTH-CV 23.9 % (11.8-14.6); RBC DIS.WIDTH-SD 64.3 % (39-53); RED BLOOD COUNT 4.29 M/uL (3.80-5.20); WHITE BLOOD COUNT 5.2 K/uL (4.1-10.2)
[2017-05-23 08:51] VITALS: BP 104/78
[2017-05-23 12:21] VITALS: BP 103/64
[2017-05-23] MEDS ORDERED: PRAVACHOL20 MG PO (14:46)
== END 2017-05-23 15:32 | disposition home or self-care (01) ==
LOC: EME 13:13 → EDOF 16:00 → 5WEST 16:00 → ENRESERV 16:05 → 5WEST 20:02
PROVIDERS: Emergency Medicine; Hospitalist
DX: R20.0 Anesthesia of skin (principal); R20.2 Paresthesia of skin; Z86.718 Personal history of other venous thrombosis and embolism; Z86.79 Personal history of other diseases of the circulatory system; Z86.69 Personal history of other diseases of the nervous system and sense organs; Z87.59 Personal history of other complications of pregnancy, childbirth and the puerperium; Z79.01 Long term (current) use of anticoagulants; I10 Essential (primary) hypertension; D50.9 Iron deficiency anemia, unspecified; F41.9 Anxiety disorder, unspecified; Z86.32 Personal history of gestational diabetes; Z86.73 Personal history of transient ischemic attack (TIA), and cerebral infarction without residual deficits; Z91.030 Bee allergy status; Z88.8 Allergy status to other drugs, medicaments and biological substances
CPT/HCPCS: 70450; 70496; 70498; 70551; 80053; 80061; 83036; 84484; 85025; 85027; 85610; 93005; 99281; 99285; G0378; J1200; J7030

== ENCOUNTER 2017-05-24 22:02 | Observation (INO) | payer OTHER ==
[~2017-05-24] VITALS: Ht 165.1 cm; Wt 64.5 kg
[~2017-05-24 22:02] MED LIST changes: +PRAVACHOL20 MG PO
[2017-05-24 22:58] LABS: PTT 40.6 SEC (25-37)
[2017-05-24 22:59] LABS: HEMATOCRIT 32.4 % (36.0-46.0); INTER. NORMALIZED RATIO 4.4; MCH 22.3 PG (29.0-34.0); MCHC 30.6 G/DL (30.0-36.0); MCV 73.1 FL (83-99); MEAN PLAT.VOLUME 10.2 uM^3 (9.5-12.4); PLATELET COUNT 451 K/uL (156-360); RBC DIS.WIDTH-CV 23.9 % (11.8-14.6); RBC DIS.WIDTH-SD 61.5 % (39-53); RED BLOOD COUNT 4.43 M/uL (3.80-5.20); WHITE BLOOD COUNT 7.4 K/uL (4.1-10.2)
[2017-05-24 23:01] LABS: CHLORIDE 109 mEq/L (99-109); POTASSIUM 3.2 mEq/L (3.7-5.4); SODIUM 139 mEq/L (136-147)
[2017-05-24 23:03] LABS: GLUCOSE 93 mg/dL (70-99)
[2017-05-24 23:04] LABS: ANION GAP 13 MEQ/L (2-14)
[2017-05-24 23:06] LABS: GFR ESTIMATE (CALCULATED) > 59 mL/min/
[2017-05-24 23:07] LABS: UREA NITROGEN (BUN) 11 mg/dL (9-23)
[2017-05-25 01:49] VITALS: BP 112/68
[2017-05-25 06:23] VITALS: BP 92/56
[2017-05-25 09:10] VITALS: BP 99/55
[2017-05-25 11:30] VITALS: BP 108/58
[2017-05-25 13:33] LABS: CHLORIDE 109 mEq/L (99-109); SODIUM 138 mEq/L (136-147)
[2017-05-25 13:34] LABS: GLUCOSE 93 mg/dL (70-99)
[2017-05-25 13:36] LABS: ANION GAP 13 MEQ/L (2-14)
[2017-05-25 13:37] LABS: POTASSIUM 5.7 mEq/L (3.7-5.4)
[2017-05-25 13:38] LABS: GFR ESTIMATE (CALCULATED) > 59 mL/min/
[2017-05-25 13:39] LABS: UREA NITROGEN (BUN) 8 mg/dL (9-23)
[2017-05-25] MEDS ORDERED: KEPPRA100 MG/1 M PO (15:10)
[2017-05-25] MEDS ORDERED: COUMADIN5 MG PO (15:11)
[2017-05-25] MEDS ORDERED: BUSPAR5 MG PO (15:11)
[2017-05-25 16:11] VITALS: BP 91/57
[2017-05-25 19:40] VITALS: BP 113/66
[2017-05-25 22:43] LABS: POINT-OF-CARE METER ID UU13113831
[2017-05-25 23:00] LABS: CHLORIDE 107 mEq/L (99-109); SODIUM 142 mEq/L (136-147)
[2017-05-25 23:01] LABS: POTASSIUM 3.6 mEq/L (3.7-5.4)
[2017-05-25 23:02] LABS: GLUCOSE 118 mg/dL (70-99)
[2017-05-25 23:03] LABS: ANION GAP 17 MEQ/L (2-14)
[2017-05-25 23:06] LABS: ALKALINE PHOSPHATASE 81 IU/L (3-129); GFR ESTIMATE (CALCULATED) > 59 mL/min/
[2017-05-25 23:07] LABS: UREA NITROGEN (BUN) 9 mg/dL (9-23)
[2017-05-25 23:10] LABS: TOTAL BILIRUBIN 0.1 mg/dL (0.0-1.0); TROP-I INTERPRETATION NEGATIVE; TROPONIN-I < 0.01 ng/mL (0.0-0.30)
[2017-05-25 23:16] LABS: MCH 22.6 PG (29.0-34.0); MCHC 30.6 G/DL (30.0-36.0); MCV 73.9 FL (83-99); PLATELET COUNT 474 K/uL (156-360); RBC DIS.WIDTH-CV 23.8 % (11.8-14.6); RED BLOOD COUNT 4.33 M/uL (3.80-5.20)
[2017-05-25 23:49] LABS: INTER. NORMALIZED RATIO 4.3; PROTHROMBIN TIME 49.8 SEC (10.2-12.9)
[2017-05-26 00:38] VITALS: BP 128/75
[2017-05-26 04:43] VITALS: BP 88/55
[2017-05-26 05:22] VITALS: BP 97/62
[2017-05-26 06:16] LABS: ALKALINE PHOSPHATASE 66 IU/L (3-129); ANION GAP 10 MEQ/L (2-14); CHLORIDE 108 MEQ/L (99-109); GFR ESTIMATE (CALCULATED) > 59 mL/min/; GLUCOSE 92 mg/dL (70-99); MAGNESIUM 1.8 mg/dl (1.3-2.7); SAMPLE HEMOLYSIS CHECK 0; SAMPLE ICTERIC CHECK 0; SAMPLE LIPEMIA CHECK 0; SODIUM 141 MEQ/L (136-147); TOTAL BILIRUBIN 0.2 MG/DL (0.0-1.0); UREA NITROGEN (BUN) 9 mg/dL (9-23)
[2017-05-26 07:11] VITALS: BP 97/62
[2017-05-26 11:41] VITALS: BP 89/54
[2017-05-26] MEDS ORDERED: AMITRIPTYLINE H10 MG PO (12:19)
== END 2017-05-26 16:14 | disposition home or self-care (01) ==
LOC: EME → EDBD 22:02 → EME 22:02 → EDOF 23:48 → ENRESERV 23:52 → 5WEST 05-25 01:13
PROVIDERS: Emergency Medicine; Hospitalist; Physician Assistant Medical
DX: R20.2 Paresthesia of skin (principal); R51 Headache; F41.9 Anxiety disorder, unspecified; G08 Intracranial and intraspinal phlebitis and thrombophlebitis; R79.1 Abnormal coagulation profile; Z86.73 Personal history of transient ischemic attack (TIA), and cerebral infarction without residual deficits; G40.409 Other generalized epilepsy and epileptic syndromes, not intractable, without status epilepticus; I10 Essential (primary) hypertension; F32.9 Major depressive disorder, single episode, unspecified; E03.9 Hypothyroidism, unspecified; E87.2 Acidosis; E87.6 Hypokalemia; Z79.01 Long term (current) use of anticoagulants
CPT/HCPCS: 70450; 70551; 80048; 80053; 82948; 83735; 84484; 85027; 85610; 85730; 93005; 99281; 99285; G0378; J1200; J2060; J7030; J7120

== ENCOUNTER 2017-05-30 18:00 | Emergency (ER) | payer OTHER ==
[~2017-05-30] VITALS: Ht 165.1 cm; Wt 62.3 kg
[~2017-05-30 18:00] MED LIST changes: +AMITRIPTYLINE H10 MG PO
[2017-05-30 18:34] LABS: HEMATOCRIT 34.1 % (36.0-46.0); MCH 22.8 PG (29.0-34.0); MCHC 30.8 G/DL (30.0-36.0); MEAN PLAT.VOLUME 9.8 uM^3 (9.5-12.4); PLATELET COUNT 403 K/uL (156-360); RBC DIS.WIDTH-CV 23.7 % (11.8-14.6); RBC DIS.WIDTH-SD 61.9 % (39-53); RED BLOOD COUNT 4.61 M/uL (3.80-5.20); WHITE BLOOD COUNT 7.5 K/uL (4.1-10.2)
[2017-05-30 18:38] LABS: CHLORIDE 108 mEq/L (99-109); POTASSIUM 4.1 mEq/L (3.7-5.4); SODIUM 142 mEq/L (136-147)
[2017-05-30 18:40] LABS: GLUCOSE 91 mg/dL (70-99)
[2017-05-30 18:41] LABS: ANION GAP 14 MEQ/L (2-14)
[2017-05-30 18:43] LABS: GFR ESTIMATE (CALCULATED) > 59 mL/min/
[2017-05-30 18:44] LABS: UREA NITROGEN (BUN) 6 mg/dL (9-23)
[2017-05-30 19:25] LABS: INTER. NORMALIZED RATIO 4.5; PROTHROMBIN TIME 52.5 SEC (10.2-12.9)
[2017-05-30 19:47] LABS: PTT 45.7 SEC (25-37)
[2017-05-30] MEDS ORDERED: PROVENTIL HFA6.7 GM IH (21:13)
[2017-05-30] MEDS ORDERED: MUCINEX DM ER1 EACH PO (21:13)
[2017-05-30] MEDS ORDERED: SALINE NOSE SPR45 M1 BOTH NARES (21:13)
[2017-05-30 21:44] VITALS: BP 100/79
== END 2017-05-30 21:46 | disposition home or self-care (01) ==
LOC: EME 18:00
DX: O90.89 Other complications of the puerperium, not elsewhere classified (principal); R51 Headache; O99.53 Diseases of the respiratory system complicating the puerperium; J06.9 Acute upper respiratory infection, unspecified; J40 Bronchitis, not specified as acute or chronic; Z86.73 Personal history of transient ischemic attack (TIA), and cerebral infarction without residual deficits; Z86.718 Personal history of other venous thrombosis and embolism; Z79.01 Long term (current) use of anticoagulants
CPT/HCPCS: 70450; 71020; 80048; 85027; 85610; 85730; 93005; 99281; 99285

== ENCOUNTER 2017-06-04 16:00 | Observation (INO) | payer OTHER ==
[~2017-06-04] VITALS: Ht 165.1 cm; Wt 63.4 kg
[~2017-06-04 16:00] MED LIST changes: +MUCINEX DM ER1 EACH PO; +PROVENTIL HFA6.7 GM IH; +SALINE NOSE SPR45 M1 BOTH NARES
[2017-06-04 17:46] LABS: CHLORIDE 111 mEq/L (99-109); EOSINOPHIL (%) 1.7 % (0-5); EOSINOPHIL COUNT 0.1 K/uL (0-0.3); HEMATOCRIT 32.2 % (36.0-46.0); IMMATURE GRANULOCYTE (%) 0.2 % (0.0-0.7); INSTRUMENT ABS NEUTROPHIL CT 5.6 K/uL; INTER. NORMALIZED RATIO 2.9; MCH 22.7 PG (29.0-34.0); MCHC 30.7 G/DL (30.0-36.0); MCV 73.7 FL (83-99); MEAN PLAT.VOLUME 10.3 uM^3 (9.5-12.4); MONOCYTE COUNT 0.4 K/uL (0-0.8); NEUTROPHIL (%) 68.2 % (45-76); NEUTROPHIL COUNT 5.6 K/uL (1.8-6.4); PLATELET COUNT 312 K/uL (156-360); POTASSIUM 3.6 mEq/L (3.7-5.4); RBC DIS.WIDTH-SD 60.2 % (39-53); RED BLOOD COUNT 4.37 M/uL (3.80-5.20); SODIUM 142 mEq/L (136-147); WHITE BLOOD COUNT 8.2 K/uL (4.1-10.2)
[2017-06-04 17:48] LABS: GLUCOSE 95 mg/dL (70-99)
[2017-06-04 17:49] LABS: ANION GAP 9 MEQ/L (2-14); PTT 36.3 SEC (25-37)
[2017-06-04 17:50] LABS: TOTAL BILIRUBIN 0.2 mg/dL (0.0-1.0)
[2017-06-04 17:51] LABS: ALKALINE PHOSPHATASE 66 IU/L (3-129)
[2017-06-04 17:52] LABS: GFR ESTIMATE (CALCULATED) > 59 mL/min/
[2017-06-04 17:53] LABS: UREA NITROGEN (BUN) 6 mg/dL (9-23)
[2017-06-04 17:57] LABS: TROP-I INTERPRETATION NEGATIVE; TROPONIN-I < 0.01 ng/mL (0.0-0.30)
[2017-06-04 18:01] LABS: QUANTITATIVE HCG < 4.0 MIU/ML
[2017-06-04] MEDS ORDERED: VENTOLIN HFA18 GM IH (19:36)
[2017-06-04] MEDS ORDERED: DIAZEPAM5 MG PO (19:37)
[2017-06-04 20:06] LABS: ADD MEDTOX COMMENT Y; AMPHETAMINE NEGATIVE (500 ng/mL); BARBITURATES NEGATIVE (200 ng/mL); BENZODIAZEPINES PRESUMPTIVE POSITIVE (150 ng/mL); COCAINE NEGATIVE (150 ng/mL); INTERNAL CONTROLS VALID? YES; METHADONE NEGATIVE (200 ng/mL); METHAMPHETAMINE NEGATIVE (500 ng/mL); OPIATES (MORPHINE) NEGATIVE (100 ng/mL); OXYCODONE NEGATIVE (100 ng/mL); PHENCYCLIDINE NEGATIVE (25 ng/mL); PROPOXYPHENE NEGATIVE (300 ng/mL); THC CANNABINOIDS NEGATIVE (50 ng/mL); TRICYCLIC ANTIDEPRESSANTS NEGATIVE (300 ng/mL)
[2017-06-04 20:23] LABS: TROP-I INTERPRETATION NEGATIVE; TROPONIN-I < 0.01 ng/mL (0.0-0.30)
[2017-06-04 20:25] LABS: BENZODIAZEPINES, URINE SCREEN POSITIVE (200 ng/mL)
[2017-06-04 23:16] VITALS: BP 118/86
[2017-06-05 04:00] VITALS: BP 98/56
[2017-06-05 05:29] LABS: HEMATOCRIT 31.7 % (36.0-46.0); MCH 22.6 PG (29.0-34.0); MCV 75.3 FL (83-99); PLATELET COUNT 267 K/uL (156-360); RBC DIS.WIDTH-CV 23.1 % (11.8-14.6); RBC DIS.WIDTH-SD 62.3 % (39-53); RED BLOOD COUNT 4.21 M/uL (3.80-5.20); WHITE BLOOD COUNT 6.5 K/uL (4.1-10.2)
[2017-06-05 05:36] LABS: INTER. NORMALIZED RATIO 2.8; PROTHROMBIN TIME 32.5 SEC (10.2-12.9)
[2017-06-05 05:52] LABS: TROP-I INTERPRETATION NEGATIVE; TROPONIN-I 0.02 ng/mL (0.0-0.30)
[2017-06-05 05:57] LABS: ANION GAP 9 MEQ/L (2-14); CHLORIDE 109 MEQ/L (99-109); GFR ESTIMATE (CALCULATED) > 59 mL/min/; GLUCOSE 87 mg/dL (70-99); POTASSIUM 3.7 MEQ/L (3.7-5.4); SAMPLE HEMOLYSIS CHECK 0; SAMPLE ICTERIC CHECK 0; SAMPLE LIPEMIA CHECK 0; SODIUM 143 MEQ/L (136-147); UREA NITROGEN (BUN) 7 mg/dL (9-23)
[2017-06-05 09:02] VITALS: BP 94/66
[2017-06-05 12:14] VITALS: BP 96/64
[2017-06-05 13:38] LABS: TROP-I INTERPRETATION NEGATIVE; TROPONIN-I 0.02 ng/mL (0.0-0.30)
[2017-06-05 15:41] VITALS: BP 108/61
[2017-06-05] MEDS ORDERED: SERTRALINE HCL25 MG PO (16:58)
== END 2017-06-05 17:12 | disposition home or self-care (01) ==
LOC: EME 16:00 → EDOF 21:16 → 5WEST 21:16 → EDOF 21:16 → ENRESERV 21:18 → 5WEST 22:55
PROVIDERS: Emergency Medicine; Hospitalist
DX: R00.1 Bradycardia, unspecified (principal); F43.20 Adjustment disorder, unspecified; F41.1 Generalized anxiety disorder; R20.0 Anesthesia of skin; Z86.73 Personal history of transient ischemic attack (TIA), and cerebral infarction without residual deficits; G08 Intracranial and intraspinal phlebitis and thrombophlebitis; G40.909 Epilepsy, unspecified, not intractable, without status epilepticus; Z79.01 Long term (current) use of anticoagulants; J32.0 Chronic maxillary sinusitis; Z86.32 Personal history of gestational diabetes
CPT/HCPCS: 70450; 71020; 80048; 80053; 84484; 84702; 84999; 85025; 85027; 85610; 85730; 93005; 99281; 99285; G0378

== ENCOUNTER 2017-07-01 12:04 | Observation (INO) | payer OTHER ==
[~2017-07-01] VITALS: Ht 165.1 cm; Wt 65.5 kg
[~2017-07-01 12:04] MED LIST changes: +DIAZEPAM5 MG PO; +SERTRALINE HCL25 MG PO; +VENTOLIN HFA18 GM IH
[2017-07-01 14:28] LABS: CHLORIDE 107 mEq/L (99-109); PROTHROMBIN TIME 22.3 SEC (10.2-12.9); SODIUM 139 mEq/L (136-147)
[2017-07-01 14:30] LABS: ADD MIUA? YES; BILIRUBIN NEGATIVE; BLOOD SMALL; COLOR YELLOW ((YELLOW)); GLUCOSE (STRIP) NEGATIVE; KETONES NEGATIVE; LEUKOCYTES LARGE; NITRITE NEGATIVE; PROTEIN (STRIP) NEGATIVE; SPECIFIC GRAVITY 1.011 (1.000-1.030); UROBILINOGEN 0.2 MG/DL (0.2-1.0)
[2017-07-01 14:31] LABS: GLUCOSE 94 mg/dL (70-99)
[2017-07-01 14:32] LABS: ANION GAP 10 MEQ/L (2-14)
[2017-07-01 14:33] LABS: TOTAL BILIRUBIN 0.4 mg/dL (0.0-1.0)
[2017-07-01 14:34] LABS: ALKALINE PHOSPHATASE 56 IU/L (3-129); GFR ESTIMATE (CALCULATED) > 59 mL/min/
[2017-07-01 14:35] LABS: UREA NITROGEN (BUN) 10 mg/dL (9-23)
[2017-07-01 14:38] LABS: HEMATOCRIT 34.8 % (36.0-46.0); MCHC 30.7 G/DL (30.0-36.0); MCV 74.8 FL (83-99); MEAN PLAT.VOLUME 10.7 uM^3 (9.5-12.4); PLATELET COUNT 278 K/uL (156-360); RBC DIS.WIDTH-CV 20.3 % (11.8-14.6); RBC DIS.WIDTH-SD 54.6 % (39-53); RED BLOOD COUNT 4.65 M/uL (3.80-5.20); WHITE BLOOD COUNT 5.7 K/uL (4.1-10.2)
[2017-07-01 14:53] LABS: RED BLOOD CELLS RARE /HPF (0-5)
[2017-07-01 14:54] LABS: EPITHELIAL CELLS 1+ /HPF; MUCUS NONE SEEN /LPF; WHITE BLOOD CELLS 15-20 /HPF (0-5)
[2017-07-01 14:55] LABS: BACTERIA 1+ /HPF; UCUL ADDED? YES
[2017-07-01 17:47] LABS: HEMATOCRIT 35.7 % (36.0-46.0); MCHC 30.8 G/DL (30.0-36.0); MCV 74.7 FL (83-99); MEAN PLAT.VOLUME 10.7 uM^3 (9.5-12.4); PLATELET COUNT 281 K/uL (156-360); RBC DIS.WIDTH-CV 20.1 % (11.8-14.6); RBC DIS.WIDTH-SD 53.9 % (39-53); RED BLOOD COUNT 4.78 M/uL (3.80-5.20); WHITE BLOOD COUNT 5.8 K/uL (4.1-10.2)
[2017-07-01 17:58] LABS: SAMPLE HEMOLYSIS CHECK 0; SAMPLE ICTERIC CHECK 0; SAMPLE LIPEMIA CHECK 1
[2017-07-01 18:07] VITALS: BP 108/73
[2017-07-01 18:07] LABS: HDL CHOLESTEROL 52 MG/DL (Desirable>=50); LDL CHOLESTEROL 115 mg/dL (Desirable<100); NON-HDL CHOLESTEROL 131 mg/dL (Desirable<160); TOTAL CHOLESTEROL 183 mg/dL (Desirable<200); TRIGLYCERIDES 79 MG/DL (Normal: <150)
[2017-07-01 18:12] LABS: Estimated Average Glucose 97 mg/dL (70-123)
[2017-07-01 20:32] VITALS: BP 118/69
[2017-07-02 00:09] VITALS: BP 94/52
[2017-07-02 11:21] VITALS: BP 103/62
[2017-07-02 11:35] LABS: INTER. NORMALIZED RATIO 2.1; PROTHROMBIN TIME 24.5 SEC (10.2-12.9)
[2017-07-02] MEDS ORDERED: CEFTIN250 MG PO (12:26)
== END 2017-07-02 13:25 | disposition home or self-care (01) ==
LOC: EME 12:04 → EDOF 16:53 → 5WEST 16:53 → EDOF 16:53 → CANRESERV 16:55 → ENRESERV 16:55 → 5WEST 18:00
PROVIDERS: Emergency Medicine; Hospitalist
DX: F41.1 Generalized anxiety disorder (principal); I69.254 Hemiplegia and hemiparesis following other nontraumatic intracranial hemorrhage affecting left non-dominant side; G40.909 Epilepsy, unspecified, not intractable, without status epilepticus; N39.0 Urinary tract infection, site not specified; I10 Essential (primary) hypertension; F32.9 Major depressive disorder, single episode, unspecified; E03.9 Hypothyroidism, unspecified; D50.9 Iron deficiency anemia, unspecified; Z79.01 Long term (current) use of anticoagulants; Z91.14 Patient's other noncompliance with medication regimen; Z86.718 Personal history of other venous thrombosis and embolism; Z81.8 Family history of other mental and behavioral disorders
CPT/HCPCS: 70450; 70544; 70549; 70551; 70553; 80053; 80061; 81003; 83036; 85027; 85610; 87086; 93005; 99281; 99285; G0378; J0696; J7030; J7050

== ENCOUNTER 2017-10-14 21:14 | Emergency (ER) | payer OTHER ==
[~2017-10-14] VITALS: Ht 162.6 cm; Wt 64.4 kg
[~2017-10-14 21:14] MED LIST changes: +CEFTIN250 MG PO
[2017-10-14 22:07] LABS: HEMOGLOBIN 10.1 G/DL (11.9-15.5); MCH 21.4 PG (29.0-34.0); MCHC 30.6 G/DL (30.0-36.0); MCV 69.9 FL (83-99); PLATELET COUNT 335 K/uL (156-360); RBC DIS.WIDTH-CV 17.2 % (11.8-14.6); RBC DIS.WIDTH-SD 42.8 % (39-53); RED BLOOD COUNT 4.72 M/uL (3.80-5.20); WHITE BLOOD COUNT 7.5 K/uL (4.1-10.2)
[2017-10-14 22:10] LABS: INTER. NORMALIZED RATIO 2.1
[2017-10-14 22:12] LABS: ALBUMIN 4.8 g/dL (3.2-4.8); CHLORIDE 104 mEq/L (99-109); POTASSIUM 3.7 mEq/L (3.7-5.4); SODIUM 137 mEq/L (136-147)
[2017-10-14 22:15] LABS: GLUCOSE 86 mg/dL (70-99); TOTAL PROTEIN 8.3 g/dL (6.4-8.3)
[2017-10-14 22:16] LABS: TOTAL BILIRUBIN 0.3 mg/dL (0.0-1.0)
[2017-10-14 22:18] LABS: ALKALINE PHOSPHATASE 54 IU/L (3-129); CREATININE 0.9 mg/dL (0.6-1.3); GFR ESTIMATE (CALCULATED) > 59 mL/min/
[2017-10-14 22:19] LABS: UREA NITROGEN (BUN) 13 mg/dL (9-23)
[2017-10-14 22:20] LABS: AST (GOT) 12 IU/L (2-34)
[2017-10-14 22:21] LABS: ALT (GPT) 12 IU/L (3-49)
[2017-10-14 22:27] LABS: QUANTITATIVE HCG < 4.0 MIU/ML
[2017-10-14 23:13] LABS: TROP-I INTERPRETATION NEGATIVE; TROPONIN-I < 0.01 ng/mL (0.0-0.30)
[2017-10-14 23:42] LABS: D-DIMER ELISA < 150.00 ng/mLDDU (<230)
[2017-10-15 00:06] VITALS: BP 119/83
== END 2017-10-15 00:08 | disposition home or self-care (01) ==
LOC: EME 21:14
PROVIDERS: Physician Assistant
DX: R07.9 Chest pain, unspecified (principal); F41.0 Panic disorder [episodic paroxysmal anxiety]; Z86.73 Personal history of transient ischemic attack (TIA), and cerebral infarction without residual deficits; Z79.01 Long term (current) use of anticoagulants; I10 Essential (primary) hypertension; F32.9 Major depressive disorder, single episode, unspecified; R56.9 Unspecified convulsions
CPT/HCPCS: 71046; 80053; 84484; 84702; 85027; 85379; 85610; 93005; 99281; 99285

== ENCOUNTER 2017-12-29 18:49 | Emergency (ER) | payer OTHER ==
[~2017-12-29] VITALS: Ht 162.6 cm; Wt 61.1 kg
[2017-12-29] MEDS ORDERED: KLONOPIN0.5 M1 PO (19:01)
[2017-12-29 19:50] LABS: HEMATOCRIT 33.3 % (36.0-46.0); MCH 20.4 PG (29.0-34.0); PLATELET COUNT 271 K/uL (156-360); RBC DIS.WIDTH-CV 17.5 % (11.8-14.6); RBC DIS.WIDTH-SD 42.1 % (39-53); WHITE BLOOD COUNT 7.6 K/uL (4.1-10.2)
[2017-12-29 20:09] LABS: CHLORIDE 107 MEQ/L (99-109); CREATININE 0.8 MG/DL (0.6-1.3); GFR ESTIMATE (CALCULATED) > 59 mL/min/; GLUCOSE 102 mg/dL (70-99); POTASSIUM 3.5 MEQ/L (3.7-5.4); SODIUM 138 MEQ/L (136-147); UREA NITROGEN (BUN) 12 mg/dL (9-23)
[2017-12-29 20:12] LABS: TROP-I INTERPRETATION NEGATIVE; TROPONIN-I < 0.01 ng/mL (0.0-0.30)
[2017-12-29 20:55] VITALS: BP 106/63
== END 2017-12-29 21:03 | disposition home or self-care (01) ==
LOC: EME 18:49
PROVIDERS: Emergency Medicine
DX: R07.9 Chest pain, unspecified (principal); I10 Essential (primary) hypertension; Z86.73 Personal history of transient ischemic attack (TIA), and cerebral infarction without residual deficits; F32.9 Major depressive disorder, single episode, unspecified; F41.9 Anxiety disorder, unspecified
CPT/HCPCS: 71046; 80048; 84484; 85027; 85379; 93005; 99281; 99285

== ENCOUNTER 2017-12-31 02:48 | Emergency (ER) | payer OTHER ==
[~2017-12-31] VITALS: Ht 162.6 cm; Wt 63.1 kg
[~2017-12-31 02:48] MED LIST changes: +KLONOPIN0.5 M1 PO
[2017-12-31] MEDS ORDERED: CLONAZEPAM0.5 MG PO (04:03)
[2017-12-31 04:51] LABS: HEMATOCRIT 29.6 % (36.0-46.0); HEMOGLOBIN 8.9 G/DL (11.9-15.5); MCH 20.2 PG (29.0-34.0); MCHC 30.1 G/DL (30.0-36.0); MCV 67.1 FL (83-99); PLATELET COUNT 249 K/uL (156-360); RBC DIS.WIDTH-CV 17.4 % (11.8-14.6); RBC DIS.WIDTH-SD 41.6 % (39-53); RED BLOOD COUNT 4.41 M/uL (3.80-5.20); WHITE BLOOD COUNT 8.6 K/uL (4.1-10.2)
[2017-12-31 04:56] LABS: CHLORIDE 107 mEq/L (99-109); POTASSIUM 3.4 mEq/L (3.7-5.4); SODIUM 140 mEq/L (136-147)
[2017-12-31 04:57] LABS: GLUCOSE 95 mg/dL (70-99)
[2017-12-31 05:01] LABS: CREATININE 0.8 mg/dL (0.6-1.3); GFR ESTIMATE (CALCULATED) > 59 mL/min/
[2017-12-31 05:02] LABS: UREA NITROGEN (BUN) 12 mg/dL (9-23)
[2017-12-31 05:04] LABS: APPEARANCE CLEAR ((CLEAR)); BILIRUBIN NEGATIVE; BLOOD NEGATIVE; COLOR COLORLESS ((YELLOW)); GLUCOSE (STRIP) NEGATIVE; KETONES NEGATIVE; LEUKOCYTES NEGATIVE; NITRITE NEGATIVE; PROTEIN (STRIP) NEGATIVE; SPECIFIC GRAVITY 1.004 (1.000-1.030); UCUL ADDED? NO; UROBILINOGEN 0.2 MG/DL (0.2-1.0)
[2017-12-31 05:06] LABS: QUANTITATIVE HCG < 4.0 MIU/ML
[2017-12-31 05:53] VITALS: BP 107/76
== END 2017-12-31 05:55 | disposition home or self-care (01) ==
LOC: EME 02:48
PROVIDERS: Emergency Medicine
DX: R51 Headache (principal); F41.1 Generalized anxiety disorder; Z86.73 Personal history of transient ischemic attack (TIA), and cerebral infarction without residual deficits
CPT/HCPCS: 80048; 81003; 84702; 85027; 99281; 99285

== ENCOUNTER 2018-01-22 02:53 | Emergency (ER) | payer OTHER ==
[~2018-01-22] VITALS: Ht 162.6 cm; Wt 59.4 kg
[~2018-01-22 02:53] MED LIST changes: +CLONAZEPAM0.5 MG PO
[2018-01-22 03:34] LABS: INTER. NORMALIZED RATIO 1.2
[2018-01-22 03:36] LABS: AMYLASE 33 IU/L (1-118)
[2018-01-22 03:45] LABS: LIPASE 31 U/L (1.0-51.0)
[2018-01-22 03:48] LABS: TROP-I INTERPRETATION NEGATIVE; TROPONIN-I < 0.01 ng/mL (0.0-0.30)
[2018-01-22 04:23] LABS: AMPHETAMINE NEGATIVE (500 ng/mL); BARBITURATES NEGATIVE (200 ng/mL); BENZODIAZEPINES NEGATIVE (150 ng/mL); BUPRENORPHINE NEGATIVE (10 ng/mL); COCAINE NEGATIVE (150 ng/mL); METHADONE NEGATIVE (200 ng/mL); METHAMPHETAMINE NEGATIVE (500 ng/mL); OPIATES (MORPHINE) NEGATIVE (100 ng/mL); OXYCODONE NEGATIVE (100 ng/mL); PHENCYCLIDINE NEGATIVE (25 ng/mL); PROPOXYPHENE NEGATIVE (300 ng/mL); THC CANNABINOIDS NEGATIVE (50 ng/mL); TRICYCLIC ANTIDEPRESSANTS NEGATIVE (300 ng/mL)
[2018-01-22 05:47] LABS: ALBUMIN 4.8 g/dL (3.2-4.8); CHLORIDE 104 mEq/L (99-109); POTASSIUM 3.5 mEq/L (3.7-5.4); SODIUM 137 mEq/L (136-147)
[2018-01-22 05:49] LABS: GLUCOSE 116 mg/dL (70-99)
[2018-01-22 05:49] LABS: BASOPHIL (%) 0.1 % (0-1); EOSINOPHIL (%) 0.9 % (0-5); EOSINOPHIL COUNT 0.1 K/uL (0-0.3); HEMATOCRIT 35.4 % (36.0-46.0); HEMOGLOBIN 10.8 G/DL (11.9-15.5); IMMATURE GRANULOCYTE (%) 0.4 % (0.0-0.7); LYMPHOCYTE (%) 32.2 % (15-42); LYMPHOCYTE COUNT 2.5 K/uL (1.0-2.8); MCH 20.3 PG (29.0-34.0); MCHC 30.5 G/DL (30.0-36.0); MCV 66.4 FL (83-99); MONOCYTE (%) 12.4 % (3-12); NEUTROPHIL COUNT 4.2 K/uL (1.8-6.4); PLATELET COUNT 266 K/uL (156-360); RBC DIS.WIDTH-CV 17.1 % (11.8-14.6); RBC DIS.WIDTH-SD 39.5 % (39-53); RED BLOOD COUNT 5.33 M/uL (3.80-5.20); WHITE BLOOD COUNT 7.7 K/uL (4.1-10.2)
[2018-01-22 05:50] LABS: TOTAL PROTEIN 8.7 g/dL (6.4-8.3)
[2018-01-22 05:51] LABS: TOTAL BILIRUBIN 0.3 mg/dL (0.0-1.0)
[2018-01-22 05:53] LABS: ALKALINE PHOSPHATASE 60 IU/L (3-129); CREATININE 0.8 mg/dL (0.6-1.3); GFR ESTIMATE (CALCULATED) > 59 mL/min/
[2018-01-22 05:54] LABS: UREA NITROGEN (BUN) 14 mg/dL (9-23)
[2018-01-22 05:55] LABS: AST (GOT) 12 IU/L (2-34)
[2018-01-22 05:56] LABS: ALT (GPT) 12 IU/L (3-49)
[2018-01-22 06:02] LABS: QUANTITATIVE HCG < 4.0 MIU/ML
[2018-01-22 10:57] VITALS: BP 85/51
== END 2018-01-22 10:59 | disposition home or self-care (01) ==
LOC: EME 02:53
PROVIDERS: Emergency Medicine
DX: R25.1 Tremor, unspecified (principal); R20.0 Anesthesia of skin; Z86.73 Personal history of transient ischemic attack (TIA), and cerebral infarction without residual deficits; I10 Essential (primary) hypertension; F41.9 Anxiety disorder, unspecified; F32.9 Major depressive disorder, single episode, unspecified; Z88.8 Allergy status to other drugs, medicaments and biological substances
CPT/HCPCS: 70450; 70544; 70551; 80053; 82150; 83690; 84484; 84702; 85025; 85610; 85730; 93005; 99281; 99285

== ENCOUNTER 2018-03-04 14:39 | Emergency (ER) | payer OTHER ==
[~2018-03-04] VITALS: Ht 165.1 cm; Wt 59.1 kg
[2018-03-04 15:37] LABS: HEMATOCRIT 35.7 % (36.0-46.0); HEMOGLOBIN 10.9 G/DL (11.9-15.5); MCH 20.9 PG (29.0-34.0); MCHC 30.5 G/DL (30.0-36.0); MCV 68.4 FL (83-99); PLATELET COUNT 295 K/uL (156-360); RBC DIS.WIDTH-CV 19.5 % (11.8-14.6); RBC DIS.WIDTH-SD 46.1 % (39-53); RED BLOOD COUNT 5.22 M/uL (3.80-5.20); WHITE BLOOD COUNT 6.4 K/uL (4.1-10.2)
[2018-03-04 15:40] LABS: ALBUMIN 5.1 g/dL (3.2-4.8)
[2018-03-04 15:41] LABS: CHLORIDE 106 mEq/L (99-109); POTASSIUM 3.8 mEq/L (3.7-5.4); SODIUM 139 mEq/L (136-147)
[2018-03-04 15:43] LABS: GLUCOSE 82 mg/dL (70-99); TOTAL PROTEIN 8.8 g/dL (6.4-8.3)
[2018-03-04 15:45] LABS: TOTAL BILIRUBIN 0.4 mg/dL (0.0-1.0)
[2018-03-04 15:46] LABS: ALKALINE PHOSPHATASE 55 IU/L (3-129)
[2018-03-04 15:47] LABS: CREATININE 1.1 mg/dL (0.6-1.3); GFR ESTIMATE (CALCULATED) > 59 mL/min/
[2018-03-04 15:48] LABS: AST (GOT) 12 IU/L (2-34); UREA NITROGEN (BUN) 10 mg/dL (9-23)
[2018-03-04 15:50] LABS: ALT (GPT) 9 IU/L (3-49)
[2018-03-04 15:55] LABS: QUANTITATIVE HCG < 4.0 MIU/ML
[2018-03-04 16:49] LABS: AMYLASE 30 IU/L (1-118)
[2018-03-04 16:58] LABS: LIPASE 25 U/L (1.0-51.0)
[2018-03-04 17:04] LABS: APPEARANCE CLEAR ((CLEAR)); BILIRUBIN NEGATIVE; BLOOD NEGATIVE; COLOR YELLOW ((YELLOW)); GLUCOSE (STRIP) NEGATIVE; KETONES NEGATIVE; LEUKOCYTES NEGATIVE; NITRITE NEGATIVE; PROTEIN (STRIP) NEGATIVE; SPECIFIC GRAVITY 1.012 (1.000-1.030); UCUL ADDED? NO; UROBILINOGEN 0.2 MG/DL (0.2-1.0)
[2018-03-04 20:20] VITALS: BP 121/72
== END 2018-03-04 20:20 | disposition home or self-care (01) ==
LOC: RME 14:39 → EME 14:39 → RME 20:20
DX: R10.31 Right lower quadrant pain (principal); F32.9 Major depressive disorder, single episode, unspecified; I10 Essential (primary) hypertension; F41.9 Anxiety disorder, unspecified; Z86.73 Personal history of transient ischemic attack (TIA), and cerebral infarction without residual deficits; Z88.8 Allergy status to other drugs, medicaments and biological substances; Z91.030 Bee allergy status
CPT/HCPCS: 76705; 80053; 81003; 82150; 83690; 84702; 85027; 99281; 99283

== ENCOUNTER 2018-05-01 15:33 | Emergency (ER) | payer OTHER ==
[~2018-05-01] VITALS: Ht 162.6 cm; Wt 61.0 kg
[2018-05-01] MEDS ORDERED: ROBITUSSIN AC,T10 ML PO (16:45)
[2018-05-01] MEDS ORDERED: TESSALON200 MG PO (16:45)
[2018-05-01 17:35] VITALS: BP 103/70
== END 2018-05-01 17:37 | disposition home or self-care (01) ==
LOC: EME 15:33
DX: J06.9 Acute upper respiratory infection, unspecified (principal); I10 Essential (primary) hypertension; Z86.73 Personal history of transient ischemic attack (TIA), and cerebral infarction without residual deficits; Z88.8 Allergy status to other drugs, medicaments and biological substances; Z91.030 Bee allergy status
CPT/HCPCS: 87651 90; 99281; 99284